=== PATIENT | female | born 1950 | race Caucasian/White ===

== ENCOUNTER 2019-02-22 08:36 | Day surgery (SDC) | payer MEDICARE, BC ==
[2019-02-21 12:10] VITALS: BMI 33.5
[~2019-02-22 08:36] MED LIST: EPINEPHrine 0.3 MG in Ophthalmic Irrigation Solution 500 ML IVP SCH; Fentanyl 100 MCG/2 ML VIAL ONE; Midazolam HCl 2 mg/2 ml Vial ONE
[2019-02-22] MEDS ORDERED: Cyclopentolate 1% Opth Drop 2 ML BOT ONE (09:09)
[2019-02-22] MEDS ORDERED: Phenylephrine 2.5% Ophth Soln 5 ML BOT ONE (09:09)
--- NOTE | 2019-02-22 12:07 | OP ---
DATE OF PROCEDURE: 02/22/2019 PRINCIPAL PREOPERATIVE DIAGNOSIS: Epiretinal membrane, left eye. POSTOPERATIVE DIAGNOSIS: Epiretinal membrane, left eye. NAME OF PROCEDURE PERFORMED: 1. 25-gauge pars plana vitrectomy, left eye. 2. Epiretinal/internal limiting membrane removal, left eye. ESTIMATED BLOOD LOSS: None. SPECIMENS REMOVED: None. COMPLICATIONS: None. ANESTHESIA: MAC with retrobulbar block. SUMMARY OF THE OPERATION: The patient was identified in the preoperative holding area. The correct eye being the left eye was marked for surgery. The patient was taken to the operating room, where MAC anesthesia was induced. The retrobulbar block was administered to the left eye. The block consisted of 1:1 ratio of 4% lidocaine and 0.75% Marcaine. A total of 5 mL was administered. The left eye was then prepped and draped in usual sterile ophthalmic fashion for surgery. A wire lid speculum was placed. A standard 25-gauge pars plana vitrectomy platform was fashioned with trocars placed approximately 4 mm from the limbus. The infusion was noted to be within the vitreous cavity prior to being turned on to an infusion pressure of 30 mmHg. The light pipe Micro vitrector was introduced in the eye under visualization of [employer] viewing system. A careful core and peripheral shave vitrectomy were performed. Following vitrectomy, ICG dye was used to stain the internal limiting membrane. Using the Atif ILM forceps, the internal limiting membrane/epiretinal membrane complex was gently removed in a circumferential fashion about the fovea. The peel extended approximately 2 disk diameters in radius circumferentially. Following peeling, the Micro vitrector was reintroduced in the eye to remove any residual vitreous debris. A 360-degree scleral depressed exam of the periphery was performed, which revealed no defects. The cannulas were sequentially removed and all sclerotomies were noted to be watertight. Subconjunctival Ancef and Kenalog were injected. The wire lid speculum was removed followed by application of TobraDex ophthalmic ointment and a light patch and shield. The patient tolerated the procedure well and was taken to outpatient recovery area in good condition. Job ID: [id number]
== END 2019-02-22 10:55 | disposition home or self-care (01) ==
LOC: SDC 08:36
PROVIDERS: ATTEND Ophthalmology Retina Specialist
PROC: 08T53ZZ Resection of Left Vitreous, Percutaneous Approach (ICD-10-PCS; principal; 2019-02-22)
PROC: 08NF3ZZ Release Left Retina, Percutaneous Approach (ICD-10-PCS; 2019-02-22)
DX: H35.372 Puckering of macula, left eye (principal); I10 Essential (primary) hypertension; E03.9 Hypothyroidism, unspecified; M19.90 Unspecified osteoarthritis, unspecified site; R06.83 Snoring
CPT/HCPCS: J0171; J2250; J3010

== ENCOUNTER 2024-07-12 13:44 | Outpatient (CLI) | payer MEDICARE | END 2024-07-12 13:45 | disposition home or self-care (01) | LOC: SCSMRI 13:44 | PROVIDERS: ATTEND Psychiatry & Neurology Neurology | DX: M48.061 Spinal stenosis, lumbar region without neurogenic claudication (principal); M48.07 Spinal stenosis, lumbosacral region | CPT/HCPCS: 72148 ==

== ENCOUNTER 2025-04-30 15:13 | Outpatient (CLI) | payer MEDICARE | END 2025-04-30 15:14 | disposition home or self-care (01) | LOC: BICRAD 15:13 | PROVIDERS: ATTEND Family Medicine | DX: M79.672 Pain in left foot (principal); M19.072 Primary osteoarthritis, left ankle and foot; Z98.890 Other specified postprocedural states ==

== ENCOUNTER 2025-05-07 09:58 | Outpatient (CLI) | payer MEDICARE | END 2025-05-07 09:59 | disposition home or self-care (01) | LOC: SCSULT 09:58 | PROVIDERS: ATTEND Family Medicine | DX: M79.661 Pain in right lower leg (principal) ==